=== PATIENT | female | born 1980 ===

== ENCOUNTER 2021-09-12 23:24 | Inpatient (IN) ==
[2021-09-12] MEDS ORDERED: traZODone 50 MG TABLET PO PRN (23:34)
[2021-09-12] MEDS ORDERED: MOM Conc 10 ML UD.LIQ PO PRN (23:34)
[2021-09-12] MEDS ORDERED: Mag Hydrox/Al Hydrox/Simeth 30 ML UDC PO PRN (23:34)
[2021-09-12] MEDS ORDERED: Acetaminophen 325 MG TABLET PO PRN (23:34)
[2021-09-12] MEDS ORDERED: Haloperidol Lactate 5 MG/ML VIAL IM PRN (23:34)
[2021-09-12] MEDS ORDERED: *HR* LORazepam 2 MG/ML VIAL IM PRN (23:34)
[2021-09-12] MEDS ORDERED: haloperidoL 5 MG TABLET PO PRN (23:34)
[2021-09-13] MEDS ORDERED: *HR* LORazepam 1 MG TABLET PO PRN
[2021-09-13] MEDS: Levothyroxine 25 MCG TABLET PO SCH (08:38)
[2021-09-13] MEDS: BuPROPion XL (24 HR) 150 MG TABLET PO SCH (12:15)
[2021-09-13] MEDS: hydrOXYzine pamoate 25 MG CAPSULE PO PRN (21:16)
[2021-09-14] MEDS: hydrOXYzine pamoate 25 MG CAPSULE PO PRN (04:43)
[2021-09-14] MEDS: Levothyroxine 25 MCG TABLET PO SCH (08:11)
[2021-09-14] MEDS: BuPROPion XL (24 HR) 150 MG TABLET PO SCH (08:11)
[2021-09-14] MEDS: Magnesium Oxide 400 MG TABLET PO SCH (14:26)
[2021-09-15] MEDS: Levothyroxine 25 MCG TABLET PO SCH (06:32)
[2021-09-15] MEDS: BuPROPion XL (24 HR) 150 MG TABLET PO SCH (09:18)
[2021-09-15] MEDS: Magnesium Oxide 400 MG TABLET PO SCH (09:18)
[2021-09-15] MEDS: hydrOXYzine pamoate 25 MG CAPSULE PO PRN (16:24)
[2021-09-16] MEDS: Levothyroxine 25 MCG TABLET PO SCH (07:00)
[2021-09-16] MEDS: Magnesium Oxide 400 MG TABLET PO SCH (09:14)
[2021-09-16] MEDS: BuPROPion XL (24 HR) 150 MG TABLET PO SCH (09:14)
[2021-09-16 10:03] VITALS: BP 100/69; PULSE 76; TEMP 97.6; O2SAT 100
[2021-09-16] MEDS: hydrOXYzine pamoate 25 MG CAPSULE PO PRN (18:21)
== END 2021-09-16 18:55 | disposition home or self-care (01) | DRG 885 ==
LOC: 1ANU 23:24
PROVIDERS: ADMIT Psychiatry & Neurology Psychiatry; ATTEND Psychiatry & Neurology Psychiatry